=== PATIENT | male | born 1980 | race Hispanic/Latino ===

== ENCOUNTER 2021-01-04 13:13 | Inpatient (IN) | payer OTHER, SELFPAY ==
[2021-01-04] VITALS (7 sets, daily range): BP systolic 112–132; BP diastolic 59–75
[~2021-01-04] VITALS: Ht 180.3 cm; Wt 124.7 kg
[2021-01-04] MEDS ORDERED: ALBUTEROL INHALER 90MCG/INH IH PRN (13:30)
[2021-01-04 13:40] LABS: BASOPHILS % (AUTO) 0.1 % (0.0-5.0); EOSINOPHILS % (AUTO) 1.7 % (0.0-8.0); HEMATOCRIT 45.1 % (42-54); LYMPHOCYTES % (AUTO) 8.4 % (21.0-51.0); MEAN CORPUSCULAR HEMOGLOBIN 28.9 pg (27.0-33.0); MEAN CORPUSCULAR HGB CONC 32.8 g/dL (32.0-36.0); MEAN CORPUSCULAR VOLUME 88.1 fL (79-99); MONOCYTES % (AUTO) 6.7 % (3.0-13.0); NEUTROPHILS % (AUTO) 82.9 % (40.0-77.0); PLATELET COUNT (AUTO) 259 K/uL (130-400); RED BLOOD CELL COUNT(AUTO) 5.12 MIL/uL (4.50-6.20); RED CELL DISTRIBUTION WIDTH 12.3 % (11.0-15.5); WHITE BLOOD COUNT (AUTO) 8.3 K/uL (4.8-10.8)
[2021-01-04 13:50] LABS: ABG BASE EXCESS 1.9 mmol/L (-2.0-3.0); ABG OXYGEN SATURATION 87.5 % (95.0-99.0); ABG PCO2 35 mmHg (35-48)
[2021-01-04 14:04] LABS: B-TYPE NATRIURETIC PEPTIDE 87 pg/mL (0-100)
[2021-01-04 14:10] LABS: ALBUMIN 2.5 g/dL (3.5-5.0); BILIRUBIN,TOTAL 0.4 mg/dL (0.2-1.0); CRP QUANTITATIVE 102.5 mg/L (0.00-9.0); TOTAL PROTEIN, SERUM 7.4 g/dL (6.0-8.3)
[2021-01-04] MEDS ORDERED: CEFTRIAXONE 1G VIAL IVP SCH (16:30)
[2021-01-04] MEDS ORDERED: PHARMACY COMMUNICATION***REMDESIVIR ORDER MISC SCH (16:30)
[2021-01-04] MEDS: DEXAMETHASONE SOD PHOSPHATE 4 MG/ML 1ML VIAL IVP SCH (17:02)
[2021-01-04 17:38] LABS: CREATINE KINASE, TOTAL 98 U/L (21-232); LACTATE DEHYDROGENASE 462 U/L (81-234)
[2021-01-04 18:57] LABS: APPEARANCE,URINE Clear (CLEAR); BILIRUBIN,URINE Negative (NEGATIVE); COLOR,URINE Dark Yellow (YELLOW); GLUCOSE, URINE (UA) Negative (NEGATIVE); KETONES,URINE Trace mg/dL (NEGATIVE); LEUKOCYTE ESTERASE ,URINE Negative (NEGATIVE); NITRATE,URINE Negative (NEGATIVE); OCCULT BLOOD,URINE Trace (NEGATIVE); PH,URINE 5.5 (5.0-8.0); PROTEIN,URINE >=1000 mg/dL (NEGATIVE)
[2021-01-04 19:08] LABS: BACTERIA,URINE Few /HPF (None Seen); RBC,URINE 0-1 /HPF (0-1); WBC,URINE 0-1 /HPF (0-1)
[2021-01-04 19:09] LABS: MUCUS,URINE Rare LPF (None Seen); SQUAMOUS EPITHELIAL CELL,UR Rare /HPF (0-2)
[2021-01-05] VITALS (15 sets, daily range): BP systolic 99–134; BP diastolic 47–72
[2021-01-05 06:42] LABS: AMPHET/METH SCREEN,URINE NEGATIVE (NEGATIVE); BARBITURATE SCREEN, URINE NEGATIVE (NEGATIVE); BENZODIAZEPINES SCREEN,URINE NEGATIVE (NEGATIVE); CANNABINOID SCREEN,URINE NEGATIVE (NEGATIVE); COCAINE SCREEN,URINE NEGATIVE (NEGATIVE); OPIATE SCREEN,URINE NEGATIVE (NEGATIVE); PHENCYCLIDINE SCREEN,URINE NEGATIVE (NEGATIVE)
[2021-01-05 06:47] LABS: BASOPHILS % (AUTO) 0.1 % (0.0-5.0); HEMATOCRIT 44.5 % (42-54); LYMPHOCYTES % (AUTO) 8.7 % (21.0-51.0); MEAN CORPUSCULAR HEMOGLOBIN 29.1 pg (27.0-33.0); MEAN CORPUSCULAR HGB CONC 32.6 g/dL (32.0-36.0); MEAN CORPUSCULAR VOLUME 89.2 fL (79-99); MONOCYTES % (AUTO) 6.7 % (3.0-13.0); NEUTROPHILS % (AUTO) 83.8 % (40.0-77.0); PLATELET COUNT (AUTO) 312 K/uL (130-400); RED BLOOD CELL COUNT(AUTO) 4.99 MIL/uL (4.50-6.20); RED CELL DISTRIBUTION WIDTH 12.4 % (11.0-15.5); WHITE BLOOD COUNT (AUTO) 13.4 K/uL (4.8-10.8)
[2021-01-05 07:01] LABS: CRP QUANTITATIVE 122.5 mg/L (0.00-9.0); POTASSIUM 4.1 mmol/L (3.5-5.1)
[2021-01-05] MEDS: ENOXAPARIN SODIUM 40 MG/0.4 ML SYRINGE SQ SCH (07:58)
[2021-01-05] MEDS ORDERED: LACTATED RINGERS 1000ML 1,000 ML IV ONE (08:58)
[2021-01-05] MEDS ORDERED: COMPOUND IV REFRIGERATED 1 EACH IVSOLN MISC PRN (09:00)
[2021-01-05] MEDS: LACTATED RINGERS 1000ML 1,000 ML IV SCH ×2 (10:03→23:58)
[2021-01-05] MEDS ORDERED: REMDESIVIR (EUA) 520 200 MG in 0.9% NACL 250ML 250 ML IV SCH (12:00)
[2021-01-05] MEDS: DEXAMETHASONE SOD PHOSPHATE 4 MG/ML 1ML VIAL IVP SCH (15:18)
[2021-01-06] VITALS (12 sets, daily range): BP systolic 100–137; BP diastolic 49–81
[2021-01-06] MEDS: REMDESIVIR LABS MISC SCH (06:00)
[2021-01-06] MEDS: ENOXAPARIN SODIUM 40 MG/0.4 ML SYRINGE SQ SCH (09:00)
[2021-01-06 09:10] LABS: BASOPHILS % (AUTO) 0.1 % (0.0-5.0); EOSINOPHILS % (AUTO) 0.1 % (0.0-8.0); HEMATOCRIT 42.9 % (42-54); LYMPHOCYTES % (AUTO) 12.9 % (21.0-51.0); MEAN CORPUSCULAR HEMOGLOBIN 28.9 pg (27.0-33.0); MEAN CORPUSCULAR HGB CONC 32.6 g/dL (32.0-36.0); MEAN CORPUSCULAR VOLUME 88.6 fL (79-99); MONOCYTES % (AUTO) 7.6 % (3.0-13.0); NEUTROPHILS % (AUTO) 78.6 % (40.0-77.0); PLATELET COUNT (AUTO) 381 K/uL (130-400); RED BLOOD CELL COUNT(AUTO) 4.84 MIL/uL (4.50-6.20); RED CELL DISTRIBUTION WIDTH 12.3 % (11.0-15.5); WHITE BLOOD COUNT (AUTO) 10.9 K/uL (4.8-10.8)
[2021-01-06 09:37] LABS: ALBUMIN 2.1 g/dL (3.5-5.0); BILIRUBIN,TOTAL 0.5 mg/dL (0.2-1.0); CREATININE 0.9 mg/dL (0.5-1.5); CRP QUANTITATIVE 57.4 mg/L (0.00-9.0); TOTAL PROTEIN, SERUM 6.7 g/dL (6.0-8.3)
[2021-01-06] MEDS ORDERED: LACTATED RINGERS 1000ML 1,000 ML IV ONE (13:39)
[2021-01-06] MEDS: REMDESIVIR (EUA) 520 100 MG in 0.9% NACL 250ML 250 ML IV SCH (13:53)
[2021-01-06] MEDS: BARICITINIB (EUA) 2 MG TABLET PO SCH (14:53)
[2021-01-06] MEDS: DEXAMETHASONE SOD PHOSPHATE 4 MG/ML 1ML VIAL IVP SCH (17:12)
[2021-01-07] VITALS (7 sets, daily range): BP systolic 133–168; BP diastolic 55–83
[2021-01-07 05:22] LABS: ALBUMIN 2.2 g/dL (3.5-5.0); BILIRUBIN,TOTAL 0.4 mg/dL (0.2-1.0); CREATININE 0.8 mg/dL (0.5-1.5); POTASSIUM 4.2 mmol/L (3.5-5.1); TOTAL PROTEIN, SERUM 6.7 g/dL (6.0-8.3)
[2021-01-07] MEDS: REMDESIVIR LABS MISC SCH (05:37)
[2021-01-07] MEDS: ENOXAPARIN SODIUM 40 MG/0.4 ML SYRINGE SQ SCH ×2 (09:10→19:27)
[2021-01-07] MEDS: PANTOPRAZOLE 40 MG TAB DR PO SCH (09:10)
[2021-01-07] MEDS: BARICITINIB (EUA) 2 MG TABLET PO SCH (09:11)
[2021-01-07] MEDS: REMDESIVIR (EUA) 520 100 MG in 0.9% NACL 250ML 250 ML IV SCH (13:22)
[2021-01-07] MEDS: DEXAMETHASONE SOD PHOSPHATE 4 MG/ML 1ML VIAL IVP SCH (18:15)
[2021-01-07] MEDS ORDERED: ENOXAPARIN SODIUM 40 MG/0.4 ML SYRINGE SQ ONE (19:11)
[2021-01-08 04:05] VITALS: BP 141/66
[2021-01-08 04:22] LABS: ABG BASE EXCESS 2.7 mmol/L (-2.0-3.0); ABG HCO3 25.7 mmol/L (21.0-28.0); ABG OXYGEN SATURATION 86.8 % (95.0-99.0); ABG PCO2 35 mmHg (35-48)
[2021-01-08 05:52] LABS: BASOPHILS % (AUTO) 0.2 % (0.0-5.0); EOSINOPHILS % (AUTO) 0.5 % (0.0-8.0); HEMATOCRIT 43.9 % (42-54); LYMPHOCYTES % (AUTO) 7.4 % (21.0-51.0); MEAN CORPUSCULAR HEMOGLOBIN 28.9 pg (27.0-33.0); MEAN CORPUSCULAR HGB CONC 32.8 g/dL (32.0-36.0); MEAN CORPUSCULAR VOLUME 88.2 fL (79-99); MONOCYTES % (AUTO) 6.4 % (3.0-13.0); NEUTROPHILS % (AUTO) 84.1 % (40.0-77.0); PLATELET COUNT (AUTO) 527 K/uL (130-400); RED BLOOD CELL COUNT(AUTO) 4.98 MIL/uL (4.50-6.20); RED CELL DISTRIBUTION WIDTH 12.1 % (11.0-15.5); WHITE BLOOD COUNT (AUTO) 12.9 K/uL (4.8-10.8)
[2021-01-08 06:10] LABS: ALBUMIN 2.3 g/dL (3.5-5.0); BILIRUBIN,TOTAL 0.6 mg/dL (0.2-1.0); CREATININE 0.9 mg/dL (0.5-1.5); POTASSIUM 4.2 mmol/L (3.5-5.1); TOTAL PROTEIN, SERUM 6.8 g/dL (6.0-8.3)
[2021-01-08] MEDS: REMDESIVIR LABS MISC SCH (06:23)
[2021-01-08 07:45] VITALS: BP 123/57
[2021-01-08] MEDS: DOCUSATE SODIUM 100 MG CAP PO SCH (09:31)
[2021-01-08] MEDS: BARICITINIB (EUA) 2 MG TABLET PO SCH (09:31)
[2021-01-08] MEDS: PANTOPRAZOLE 40 MG TAB DR PO SCH (09:31)
[2021-01-08] MEDS: ENOXAPARIN SODIUM 40 MG/0.4 ML SYRINGE SQ SCH ×2 (09:32→20:34)
[2021-01-08 11:30] VITALS: BP 117/53
[2021-01-08] MEDS: LACTULOSE 20 GM/30 ML UDCUP PO PRN (14:19)
[2021-01-08] MEDS: REMDESIVIR (EUA) 520 100 MG in 0.9% NACL 250ML 250 ML IV SCH (14:19)
[2021-01-08 16:00] VITALS: BP 126/66
[2021-01-08] MEDS: DEXAMETHASONE SOD PHOSPHATE 4 MG/ML 1ML VIAL IVP SCH (16:31)
[2021-01-08 19:50] VITALS: BP 108/57
[2021-01-08 23:26] VITALS: BP 105/55
[2021-01-09 03:58] VITALS: BP 115/68
[2021-01-09 05:43] LABS: BASOPHILS % (AUTO) 0.3 % (0.0-5.0); EOSINOPHILS % (AUTO) 2.4 % (0.0-8.0); HEMATOCRIT 43.5 % (42-54); LYMPHOCYTES % (AUTO) 7.1 % (21.0-51.0); MEAN CORPUSCULAR HEMOGLOBIN 28.6 pg (27.0-33.0); MEAN CORPUSCULAR HGB CONC 32.2 g/dL (32.0-36.0); NEUTROPHILS % (AUTO) 80.6 % (40.0-77.0); PLATELET COUNT (AUTO) 568 K/uL (130-400); RED BLOOD CELL COUNT(AUTO) 4.89 MIL/uL (4.50-6.20); RED CELL DISTRIBUTION WIDTH 12.4 % (11.0-15.5); WHITE BLOOD COUNT (AUTO) 12.7 K/uL (4.8-10.8)
[2021-01-09 05:59] LABS: ALBUMIN 2.2 g/dL (3.5-5.0); BILIRUBIN,TOTAL 0.7 mg/dL (0.2-1.0); POTASSIUM 4.4 mmol/L (3.5-5.1); TOTAL PROTEIN, SERUM 6.9 g/dL (6.0-8.3)
[2021-01-09] MEDS: REMDESIVIR LABS MISC SCH (06:14)
[2021-01-09 08:00] VITALS: BP 132/67
[2021-01-09] MEDS: DOCUSATE SODIUM 100 MG CAP PO SCH (09:38)
[2021-01-09] MEDS: BARICITINIB (EUA) 2 MG TABLET PO SCH (09:38)
[2021-01-09] MEDS: ENOXAPARIN SODIUM 40 MG/0.4 ML SYRINGE SQ SCH (09:38)
[2021-01-09] MEDS: PANTOPRAZOLE 40 MG TAB DR PO SCH (09:38)
[2021-01-09] MEDS: LACTULOSE 20 GM/30 ML UDCUP PO PRN (09:38)
[2021-01-09 12:00] VITALS: BP 122/63
[2021-01-09] MEDS: REMDESIVIR (EUA) 520 100 MG in 0.9% NACL 250ML 250 ML IV SCH (14:09)
[2021-01-09 16:00] VITALS: BP 111/69
[2021-01-09] MEDS: DEXAMETHASONE SOD PHOSPHATE 4 MG/ML 1ML VIAL IVP SCH ×2 (16:40→20:27)
[2021-01-09] MEDS: ENOXAPARIN SODIUM 60 MG/0.6 ML SQ SCH (20:30)
[2021-01-09 20:46] VITALS: BP 114/57
[2021-01-10] VITALS (7 sets, daily range): BP systolic 91–124; BP diastolic 38–66
[2021-01-10 05:11] LABS: BASOPHILS % (AUTO) 0.3 % (0.0-5.0); EOSINOPHILS % (AUTO) 0.3 % (0.0-8.0); HEMATOCRIT 40.5 % (42-54); LYMPHOCYTES % (AUTO) 6.2 % (21.0-51.0); MEAN CORPUSCULAR HEMOGLOBIN 29.1 pg (27.0-33.0); MEAN CORPUSCULAR HGB CONC 33.1 g/dL (32.0-36.0); MEAN CORPUSCULAR VOLUME 87.9 fL (79-99); MONOCYTES % (AUTO) 5.5 % (3.0-13.0); PLATELET COUNT (AUTO) 678 K/uL (130-400); RED BLOOD CELL COUNT(AUTO) 4.61 MIL/uL (4.50-6.20); RED CELL DISTRIBUTION WIDTH 12.3 % (11.0-15.5); WHITE BLOOD COUNT (AUTO) 10.6 K/uL (4.8-10.8)
[2021-01-10 05:55] LABS: CRP QUANTITATIVE 130.8 mg/L (0.00-9.0)
[2021-01-10 06:08] LABS: ALBUMIN 2.1 g/dL (3.5-5.0); BILIRUBIN,TOTAL 0.4 mg/dL (0.2-1.0); CREATININE 0.9 mg/dL (0.5-1.5); POTASSIUM 4.6 mmol/L (3.5-5.1); TOTAL PROTEIN, SERUM 6.9 g/dL (6.0-8.3)
[2021-01-10] MEDS: DOCUSATE SODIUM 100 MG CAP PO SCH (09:28)
[2021-01-10] MEDS: DEXAMETHASONE SOD PHOSPHATE 4 MG/ML 1ML VIAL IVP SCH ×2 (09:28→19:38)
[2021-01-10] MEDS: BARICITINIB (EUA) 2 MG TABLET PO SCH (09:29)
[2021-01-10] MEDS: PANTOPRAZOLE 40 MG TAB DR PO SCH (09:29)
[2021-01-10] MEDS: ENOXAPARIN SODIUM 60 MG/0.6 ML SQ SCH ×2 (09:31→19:38)
[2021-01-11 04:36] VITALS: BP 119/50
[2021-01-11 05:24] LABS: BASOPHILS % (AUTO) 0.3 % (0.0-5.0); EOSINOPHILS % (AUTO) 1.3 % (0.0-8.0); HEMATOCRIT 42.3 % (42-54); LYMPHOCYTES % (AUTO) 5.6 % (21.0-51.0); MEAN CORPUSCULAR HEMOGLOBIN 29.1 pg (27.0-33.0); MEAN CORPUSCULAR HGB CONC 32.6 g/dL (32.0-36.0); MEAN CORPUSCULAR VOLUME 89.1 fL (79-99); MONOCYTES % (AUTO) 6.9 % (3.0-13.0); NEUTROPHILS % (AUTO) 81.4 % (40.0-77.0); RED BLOOD CELL COUNT(AUTO) 4.75 MIL/uL (4.50-6.20); RED CELL DISTRIBUTION WIDTH 12.3 % (11.0-15.5); WHITE BLOOD COUNT (AUTO) 16.5 K/uL (4.8-10.8)
[2021-01-11 05:25] LABS: PLATELET COUNT (AUTO) 733 K/uL (130-400)
[2021-01-11 05:36] LABS: ALBUMIN 2.2 g/dL (3.5-5.0); BILIRUBIN,TOTAL 0.4 mg/dL (0.2-1.0); CRP QUANTITATIVE 54.6 mg/L (0.00-9.0); POTASSIUM 4.8 mmol/L (3.5-5.1); TOTAL PROTEIN, SERUM 6.8 g/dL (6.0-8.3)
[2021-01-11 06:02] LABS: PLATELET MORPHOLOGY COMMENT MARKED INCREASE
[2021-01-11 08:15] VITALS: BP 149/61
[2021-01-11] MEDS: ENOXAPARIN SODIUM 60 MG/0.6 ML SQ SCH ×2 (09:04→20:44)
[2021-01-11] MEDS: PANTOPRAZOLE 40 MG TAB DR PO SCH (09:04)
[2021-01-11] MEDS: BARICITINIB (EUA) 2 MG TABLET PO SCH (09:04)
[2021-01-11] MEDS: DEXAMETHASONE SOD PHOSPHATE 4 MG/ML 1ML VIAL IVP SCH ×2 (09:04→20:43)
[2021-01-11] MEDS: DOCUSATE SODIUM 100 MG CAP PO SCH (09:04)
[2021-01-11 10:13] LABS: HEPATITIS A ANTIBODY IGM Negative (Negative); HEPATITIS B CORE IGM Negative (Negative); HEPATITIS Bs ANTIGEN SCREEN P Negative (Negative)
[2021-01-11 12:00] VITALS: BP 104/58
[2021-01-11 16:13] VITALS: BP 114/58
[2021-01-11 20:09] VITALS: BP 109/55
[2021-01-12 00:13] VITALS: BP 99/55
[2021-01-12 04:18] VITALS: BP 104/61
[2021-01-12 05:49] LABS: CRP QUANTITATIVE 73.8 mg/L (0.00-9.0); POTASSIUM 4.7 mmol/L (3.5-5.1)
[2021-01-12 07:18] VITALS: BP 116/62
[2021-01-12] MEDS: BARICITINIB (EUA) 2 MG TABLET PO SCH (08:50)
[2021-01-12] MEDS: DOCUSATE SODIUM 100 MG CAP PO SCH (08:50)
[2021-01-12] MEDS: DEXAMETHASONE SOD PHOSPHATE 4 MG/ML 1ML VIAL IVP SCH (08:50)
[2021-01-12] MEDS: PANTOPRAZOLE 40 MG TAB DR PO SCH (08:51)
[2021-01-12] MEDS: ENOXAPARIN SODIUM 60 MG/0.6 ML SQ SCH ×2 (08:51→19:52)
[2021-01-12 12:45] VITALS: BP 99/56
[2021-01-12 15:25] VITALS: BP 114/58
[2021-01-12] MEDS: SOLU-MEDROL 40MG VIAL IVP SCH (19:52)
[2021-01-12 20:32] VITALS: BP 110/63
[2021-01-13 00:11] VITALS: BP 107/58
[2021-01-13 04:55] VITALS: BP 115/55
[2021-01-13 08:06] VITALS: BP 101/52
[2021-01-13] MEDS: BARICITINIB (EUA) 2 MG TABLET PO SCH (09:31)
[2021-01-13] MEDS: ENOXAPARIN SODIUM 60 MG/0.6 ML SQ SCH ×2 (09:31→19:49)
[2021-01-13] MEDS: PANTOPRAZOLE 40 MG TAB DR PO SCH (09:31)
[2021-01-13] MEDS: DOCUSATE SODIUM 100 MG CAP PO SCH (09:32)
[2021-01-13] MEDS: SOLU-MEDROL 40MG VIAL IVP SCH ×2 (09:32→19:49)
[2021-01-13 09:48] LABS: BASOPHILS % (AUTO) 0.4 % (0.0-5.0); EOSINOPHILS % (AUTO) 0.3 % (0.0-8.0); HEMATOCRIT 42.8 % (42-54); LYMPHOCYTES % (AUTO) 8.7 % (21.0-51.0); MEAN CORPUSCULAR HEMOGLOBIN 28.8 pg (27.0-33.0); MEAN CORPUSCULAR HGB CONC 31.3 g/dL (32.0-36.0); MONOCYTES % (AUTO) 7.2 % (3.0-13.0); RED BLOOD CELL COUNT(AUTO) 4.65 MIL/uL (4.50-6.20); RED CELL DISTRIBUTION WIDTH 12.6 % (11.0-15.5); WHITE BLOOD COUNT (AUTO) 13.9 K/uL (4.8-10.8)
[2021-01-13 09:58] LABS: POTASSIUM 5.2 mmol/L (3.5-5.1)
[2021-01-13 10:14] LABS: PLATELET COUNT (AUTO) 784 K/uL (130-400)
[2021-01-13 11:47] VITALS: BP 108/54
[2021-01-13 16:20] VITALS: BP 119/60
[2021-01-13] MEDS: LACTULOSE 20 GM/30 ML UDCUP PO PRN (20:57)
[2021-01-14] VITALS (7 sets, daily range): BP systolic 105–135; BP diastolic 53–70
[2021-01-14] MEDS: BARICITINIB (EUA) 2 MG TABLET PO SCH (09:25)
[2021-01-14] MEDS: PANTOPRAZOLE 40 MG TAB DR PO SCH (09:25)
[2021-01-14] MEDS: SOLU-MEDROL 40MG VIAL IVP SCH ×2 (09:25→20:57)
[2021-01-14] MEDS: DOCUSATE SODIUM 100 MG CAP PO SCH (09:25)
[2021-01-14] MEDS: ENOXAPARIN SODIUM 60 MG/0.6 ML SQ SCH ×2 (09:29→20:58)
[2021-01-15 04:02] VITALS: BP 102/50
[2021-01-15 08:00] VITALS: BP 134/62
[2021-01-15] MEDS: BARICITINIB (EUA) 2 MG TABLET PO SCH (09:35)
[2021-01-15] MEDS: DOCUSATE SODIUM 100 MG CAP PO SCH (09:35)
[2021-01-15] MEDS: SOLU-MEDROL 40MG VIAL IVP SCH ×2 (09:35→19:41)
[2021-01-15] MEDS: PANTOPRAZOLE 40 MG TAB DR PO SCH (09:35)
[2021-01-15] MEDS: ENOXAPARIN SODIUM 60 MG/0.6 ML SQ SCH ×2 (09:35→19:47)
[2021-01-15 12:00] VITALS: BP 105/49
[2021-01-15 16:00] VITALS: BP 135/55
[2021-01-15 20:19] VITALS: BP 128/64
[2021-01-15 23:37] VITALS: BP 105/55
[2021-01-16 04:00] VITALS: BP 116/61
[2021-01-16 08:54] VITALS: BP 116/56
[2021-01-16] MEDS: BARICITINIB (EUA) 2 MG TABLET PO SCH (08:54)
[2021-01-16] MEDS: SOLU-MEDROL 40MG VIAL IVP SCH ×2 (08:54→20:55)
[2021-01-16] MEDS: PANTOPRAZOLE 40 MG TAB DR PO SCH (08:54)
[2021-01-16] MEDS: DOCUSATE SODIUM 100 MG CAP PO SCH (08:54)
[2021-01-16] MEDS: ENOXAPARIN SODIUM 60 MG/0.6 ML SQ SCH ×2 (08:55→20:56)
[2021-01-16 12:00] VITALS: BP 123/56
[2021-01-16 16:34] VITALS: BP 117/57
[2021-01-16 20:00] VITALS: BP 102/69
[2021-01-16 23:55] VITALS: BP 99/58
[2021-01-17 04:00] VITALS: BP 109/65
[2021-01-17 07:45] VITALS: BP 110/54
[2021-01-17] MEDS: PANTOPRAZOLE 40 MG TAB DR PO SCH (08:39)
[2021-01-17] MEDS: DOCUSATE SODIUM 100 MG CAP PO SCH (08:39)
[2021-01-17] MEDS: BARICITINIB (EUA) 2 MG TABLET PO SCH (08:39)
[2021-01-17] MEDS: SOLU-MEDROL 40MG VIAL IVP SCH (08:39)
[2021-01-17] MEDS: ENOXAPARIN SODIUM 60 MG/0.6 ML SQ SCH ×2 (08:40→19:54)
[2021-01-17 10:19] LABS: BASOPHILS % (AUTO) 0.4 % (0.0-5.0); EOSINOPHILS % (AUTO) 0.4 % (0.0-8.0); HEMATOCRIT 46.2 % (42-54); LYMPHOCYTES % (AUTO) 8.8 % (21.0-51.0); MEAN CORPUSCULAR HEMOGLOBIN 28.9 pg (27.0-33.0); MEAN CORPUSCULAR HGB CONC 31.2 g/dL (32.0-36.0); MEAN CORPUSCULAR VOLUME 92.6 fL (79-99); MONOCYTES % (AUTO) 7.9 % (3.0-13.0); NEUTROPHILS % (AUTO) 80.3 % (40.0-77.0); RED BLOOD CELL COUNT(AUTO) 4.99 MIL/uL (4.50-6.20); RED CELL DISTRIBUTION WIDTH 12.7 % (11.0-15.5); WHITE BLOOD COUNT (AUTO) 20.9 K/uL (4.8-10.8)
[2021-01-17 10:35] LABS: ALBUMIN 2.5 g/dL (3.5-5.0); BILIRUBIN,TOTAL 0.5 mg/dL (0.2-1.0); CREATININE 0.9 mg/dL (0.5-1.5); CRP QUANTITATIVE 40.6 mg/L (0.00-9.0); POTASSIUM 4.2 mmol/L (3.5-5.1); TOTAL PROTEIN, SERUM 7.5 g/dL (6.0-8.3)
[2021-01-17 10:58] LABS: PLATELET COUNT (AUTO) 703 K/uL (130-400)
[2021-01-17] MEDS ORDERED: ALPRAZOLAM 0.25 MG TABLET PO ONE (11:30)
[2021-01-17 11:56] VITALS: BP 121/76
[2021-01-17 15:45] VITALS: BP 112/67
[2021-01-17] MEDS: CLONAZEPAM 0.5 MG TABLET PO PRN (19:54)
[2021-01-17 20:00] VITALS: BP 125/84
[2021-01-18] VITALS: BP 109/55
[2021-01-18 04:00] VITALS: BP 115/65
[2021-01-18 05:17] LABS: BASOPHILS % (AUTO) 0.4 % (0.0-5.0); EOSINOPHILS % (AUTO) 1.1 % (0.0-8.0); HEMATOCRIT 43.6 % (42-54); MEAN CORPUSCULAR HEMOGLOBIN 29.1 pg (27.0-33.0); MEAN CORPUSCULAR HGB CONC 32.6 g/dL (32.0-36.0); MEAN CORPUSCULAR VOLUME 89.3 fL (79-99); MONOCYTES % (AUTO) 9.3 % (3.0-13.0); NEUTROPHILS % (AUTO) 77.7 % (40.0-77.0); PLATELET COUNT (AUTO) 642 K/uL (130-400); RED BLOOD CELL COUNT(AUTO) 4.88 MIL/uL (4.50-6.20); RED CELL DISTRIBUTION WIDTH 12.6 % (11.0-15.5); WHITE BLOOD COUNT (AUTO) 17.5 K/uL (4.8-10.8)
[2021-01-18 05:43] LABS: ALBUMIN 2.5 g/dL (3.5-5.0); BILIRUBIN,TOTAL 0.6 mg/dL (0.2-1.0); CRP QUANTITATIVE 29.4 mg/L (0.00-9.0); POTASSIUM 4.2 mmol/L (3.5-5.1); TOTAL PROTEIN, SERUM 7.3 g/dL (6.0-8.3)
[2021-01-18] MEDS: LACTULOSE 20 GM/30 ML UDCUP PO PRN (06:12)
[2021-01-18] MEDS: PANTOPRAZOLE 40 MG TAB DR PO SCH (07:39)
[2021-01-18] MEDS: DOCUSATE SODIUM 100 MG CAP PO SCH (07:39)
[2021-01-18] MEDS: ENOXAPARIN SODIUM 60 MG/0.6 ML SQ SCH ×2 (07:40→19:06)
[2021-01-18] MEDS: SOLU-MEDROL 40MG VIAL IVP SCH ×2 (07:40→19:05)
[2021-01-18 08:00] VITALS: BP 130/68
[2021-01-18] MEDS: BARICITINIB (EUA) 2 MG TABLET PO SCH (09:13)
[2021-01-18] MEDS: CLONAZEPAM 0.5 MG TABLET PO PRN ×2 (09:14→19:05)
[2021-01-18 12:07] VITALS: BP 116/69
[2021-01-18 16:06] VITALS: BP 108/70
[2021-01-18 20:00] VITALS: BP 120/66
[2021-01-19] VITALS: BP 98/52
[2021-01-19 04:00] VITALS: BP 119/71
[2021-01-19 05:14] LABS: BASOPHILS % (AUTO) 0.2 % (0.0-5.0); EOSINOPHILS % (AUTO) 0.5 % (0.0-8.0); HEMATOCRIT 42.5 % (42-54); LYMPHOCYTES % (AUTO) 8.3 % (21.0-51.0); MEAN CORPUSCULAR HEMOGLOBIN 29.1 pg (27.0-33.0); MONOCYTES % (AUTO) 6.6 % (3.0-13.0); NEUTROPHILS % (AUTO) 82.6 % (40.0-77.0); PLATELET COUNT (AUTO) 575 K/uL (130-400); RED BLOOD CELL COUNT(AUTO) 4.67 MIL/uL (4.50-6.20); RED CELL DISTRIBUTION WIDTH 12.5 % (11.0-15.5); WHITE BLOOD COUNT (AUTO) 15.3 K/uL (4.8-10.8)
[2021-01-19 05:36] LABS: ALBUMIN 2.5 g/dL (3.5-5.0); BILIRUBIN,TOTAL 0.4 mg/dL (0.2-1.0); CREATININE 0.9 mg/dL (0.5-1.5); CRP QUANTITATIVE 43.6 mg/L (0.00-9.0); POTASSIUM 4.6 mmol/L (3.5-5.1); TOTAL PROTEIN, SERUM 7.3 g/dL (6.0-8.3)
[2021-01-19 08:22] VITALS: BP 94/50
[2021-01-19] MEDS: PANTOPRAZOLE 40 MG TAB DR PO SCH (08:38)
[2021-01-19] MEDS: DOCUSATE SODIUM 100 MG CAP PO SCH (08:38)
[2021-01-19] MEDS: SOLU-MEDROL 40MG VIAL IVP SCH ×2 (08:38→21:18)
[2021-01-19] MEDS: BARICITINIB (EUA) 2 MG TABLET PO SCH (08:38)
[2021-01-19] MEDS: ENOXAPARIN SODIUM 60 MG/0.6 ML SQ SCH ×2 (08:39→21:24)
[2021-01-19] MEDS: CLONAZEPAM 0.5 MG TABLET PO PRN ×2 (09:03→21:24)
[2021-01-19 11:26] VITALS: BP 116/61
[2021-01-19 16:51] VITALS: BP 138/68
[2021-01-19 19:55] VITALS: BP 144/68
[2021-01-20] VITALS (7 sets, daily range): BP systolic 104–137; BP diastolic 59–77
[2021-01-20 04:36] LABS: BASOPHILS % (AUTO) 0.2 % (0.0-5.0); EOSINOPHILS % (AUTO) 0.3 % (0.0-8.0); HEMATOCRIT 42.8 % (42-54); LYMPHOCYTES % (AUTO) 8.4 % (21.0-51.0); MEAN CORPUSCULAR HEMOGLOBIN 28.8 pg (27.0-33.0); MEAN CORPUSCULAR HGB CONC 32.5 g/dL (32.0-36.0); MEAN CORPUSCULAR VOLUME 88.8 fL (79-99); MONOCYTES % (AUTO) 4.3 % (3.0-13.0); NEUTROPHILS % (AUTO) 84.7 % (40.0-77.0); PLATELET COUNT (AUTO) 534 K/uL (130-400); RED BLOOD CELL COUNT(AUTO) 4.82 MIL/uL (4.50-6.20); RED CELL DISTRIBUTION WIDTH 12.1 % (11.0-15.5); WHITE BLOOD COUNT (AUTO) 12.4 K/uL (4.8-10.8)
[2021-01-20 04:59] LABS: ALBUMIN 2.6 g/dL (3.5-5.0); BILIRUBIN,TOTAL 0.4 mg/dL (0.2-1.0); CREATININE 0.8 mg/dL (0.5-1.5); CRP QUANTITATIVE 27.6 mg/L (0.00-9.0); POTASSIUM 4.6 mmol/L (3.5-5.1); TOTAL PROTEIN, SERUM 7.2 g/dL (6.0-8.3)
[2021-01-20] MEDS: PANTOPRAZOLE 40 MG TAB DR PO SCH (07:39)
[2021-01-20] MEDS: DOCUSATE SODIUM 100 MG CAP PO SCH (07:39)
[2021-01-20] MEDS: CLONAZEPAM 0.5 MG TABLET PO PRN ×2 (07:39→20:12)
[2021-01-20] MEDS: SOLU-MEDROL 40MG VIAL IVP SCH ×2 (07:39→20:03)
[2021-01-20] MEDS: ENOXAPARIN SODIUM 60 MG/0.6 ML SQ SCH ×2 (07:40→20:05)
[2021-01-21 03:48] VITALS: BP 117/65
[2021-01-21 04:50] LABS: BASOPHILS % (AUTO) 0.3 % (0.0-5.0); EOSINOPHILS % (AUTO) 0.3 % (0.0-8.0); HEMATOCRIT 44.3 % (42-54); MEAN CORPUSCULAR HEMOGLOBIN 28.9 pg (27.0-33.0); MEAN CORPUSCULAR HGB CONC 32.1 g/dL (32.0-36.0); MEAN CORPUSCULAR VOLUME 90.2 fL (79-99); MONOCYTES % (AUTO) 5.6 % (3.0-13.0); NEUTROPHILS % (AUTO) 83.3 % (40.0-77.0); PLATELET COUNT (AUTO) 473 K/uL (130-400); RED BLOOD CELL COUNT(AUTO) 4.91 MIL/uL (4.50-6.20); RED CELL DISTRIBUTION WIDTH 12.4 % (11.0-15.5); WHITE BLOOD COUNT (AUTO) 13.6 K/uL (4.8-10.8)
[2021-01-21 05:12] LABS: ALBUMIN 2.6 g/dL (3.5-5.0); BILIRUBIN,TOTAL 0.3 mg/dL (0.2-1.0); CREATININE 0.9 mg/dL (0.5-1.5); POTASSIUM 4.7 mmol/L (3.5-5.1); TOTAL PROTEIN, SERUM 7.3 g/dL (6.0-8.3)
[2021-01-21 08:22] VITALS: BP 93/55
[2021-01-21] MEDS: PANTOPRAZOLE 40 MG TAB DR PO SCH (08:43)
[2021-01-21] MEDS: CLONAZEPAM 0.5 MG TABLET PO PRN (08:43)
[2021-01-21] MEDS: DOCUSATE SODIUM 100 MG CAP PO SCH (08:43)
[2021-01-21] MEDS: SOLU-MEDROL 40MG VIAL IVP SCH (08:43)
[2021-01-21] MEDS: ENOXAPARIN SODIUM 60 MG/0.6 ML SQ SCH (08:44)
[2021-01-21 11:00] VITALS: BP 122/78
[2021-01-21] MEDS ORDERED: DEXA6TAB7 PO ×2 (15:38→15:59)
[2021-01-21] MEDS ORDERED: APIX2.5T PO (15:41)
[2021-01-21 16:02] VITALS: BP 114/78
== END 2021-01-21 17:00 | disposition home or self-care (01) | DRG 177 ==
LOC: EDH 13:13 → EDHIP 13:14 → 2DH 01-06 04:59 → EDHIP 01-06 05:07 → 4AH 01-07 00:22
PROVIDERS: ADMIT Internal Medicine; ATTEND Internal Medicine
PROC: XW033E5 Introduction of Remdesivir Anti-infective into Peripheral Vein, Percutaneous Approach, New Technology Group 5 (ICD-10-PCS; principal; 2021-01-05)
PROC: XW0DXM6 Introduction of Baricitinib into Mouth and Pharynx, External Approach, New Technology Group 6 (ICD-10-PCS; 2021-01-06)
PROC: 5A0935A Assistance with Respiratory Ventilation, Less than 24 Consecutive Hours, High Flow/Velocity Cannula (ICD-10-PCS; 2021-01-14)
PROC: 5A0935A Assistance with Respiratory Ventilation, Less than 24 Consecutive Hours, High Flow/Velocity Cannula (ICD-10-PCS; 2021-01-16)
PROC: 5A0935A Assistance with Respiratory Ventilation, Less than 24 Consecutive Hours, High Flow/Velocity Cannula (ICD-10-PCS; 2021-01-17)
DX: U07.1 COVID-19 (principal); J12.82 Pneumonia due to coronavirus disease 2019; J80 Acute respiratory distress syndrome; E87.1 Hypo-osmolality and hyponatremia; E66.01 Morbid (severe) obesity due to excess calories; R79.89 Other specified abnormal findings of blood chemistry; K59.00 Constipation, unspecified; Z68.38 Body mass index [BMI] 38.0-38.9, adult
CPT/HCPCS: 36415; 36600; 71045; 76705; 80048; 80053; 80074; 80305; 81001; 82435; 82550; 82728; 82803; 82947; 83605; 83615; 83880; 84132; 84145; 84295; 84484; 85018; 85025; 85378; 86140; 87040; 87088; 87426; 87804; 87880; 93005; 93306; 93356; 93970; 94760; G0378; J0696; J1100; J1650; J2920; J7050; J7120